=== PATIENT | female | born 1990 | race Caucasian/White ===

== ENCOUNTER 2024-02-16 17:22 | Emergency (ER) | payer BC ==
--- NOTE | 2024-02-16 17:37 | ED Physician Documentation ---
PD HPI LOWER EXT INJURY - Stated complaint Stated Complaint: L KNEE INJ - Chief complaint Chief Complaint: Ext Problem - History obtained from History obtained from: Patient (She was playing soccer just prior to arrival and collided with another player and hyperextended her left knee. Pain is moderate. No other injuries. She is not able to walk or bear weight.) PD PAST MEDICAL HISTORY - Past Medical History Past Medical History: No - Allergies Allergies/Adverse Reactions: Allergies Allergy/AdvReac Type Severity Reaction Status Date / Time No Known Drug Allergies Allergy Verified 02/16/24 17:36 - Social History Does the pt smoke?: No Smoking Status: Never smoker Does the pt drink ETOH?: No ETOH Use: Wine, Beer Does the pt have substance abuse?: No - Immunizations Immunizations are current?: No Immunizations: TDAP current <10years - POLST Patient has POLST: No PD ED PE NORMAL - Vitals Vital signs reviewed: Yes - General General: Alert and oriented X 3, No acute distress - Extremities Extremities: Other (The left knee is swollen anteriorly with an effusion. I am not able to elicit any tenderness of the knee. ACL, PCL, LCL, MCL testing is intact without laxity or significant pain. Borderline positive grind testing.) - Neuro Neuro: Alert and oriented X 3 Results - Vitals Vitals: Vital Signs - 24 hr 02/16/24 17:28 Temperature 37.4 C Heart Rate 100 Respiratory 18 Rate Blood Pressure 124/84 H O2 Saturation 100 Oxygen O2 Source Room air - Rads (name of study) 4v L knee XR- NAd Relevant Findings:: Final report received, EMP independent interpretation of test PD Medical Decision Making - ED course ED course: Clinically with effusion, borderline pos grind test. Cannot WB Knee immobilizer/crutches F/u for reexam despite neg xr, consider outpt mri. Departure - Departure Disposition: 01 Home, Self Care Clinical Impression: Knee injury Qualifiers: Encounter type: initial encounter Laterality: left Qualified Code(s): S89.92XA - Unspecified injury of left lower leg, initial encounter Condition: Good Record reviewed to determine appropriate education?: Yes Instructions: ED Sprain Knee Comments: As discussed, the knee x-ray looks normal to me. If you are able to over the next couple of days it is okay to walk and bear weight as tolerated, but if not improving quickly follow-up with primary care physician or orthopedist in your area for reevaluation and consideration for MRI. Return for new or worsening symptoms. You can take Tylenol and/or ibuprofen as needed for pain. Forms: PCP List Discharge Date/Time: 02/16/24 18:29
[2024-02-16 17:40] VITALS: BP 124/84; O2SAT 100
--- NOTE | 2024-02-16 19:12 | XRAY Report ---
PROCEDURE: Knee 4+V LT INDICATIONS: knee inj TECHNIQUE: 4 views of the knee(s) were acquired. COMPARISON: None. FINDINGS: Bones: No fractures or dislocations. Joint spaces are maintained. Normal patellar alignment on the s unrise view. No suspicious bony lesions. Soft tissues: No knee joint effusion. No suspicious soft tissue calcifications or masses. IMPRESSION: No acute bony abnormality. Reviewed by: Valentino Rodriguez MD on 02/16/2024 6:10 PM JODY Approved by: Valentino Rodriguez MD on 02/16/2024 6:10 PM AKKASH Station ID: [id number]
== END 2024-02-16 18:29 | disposition home or self-care (01) ==
LOC: ED 17:22
DX: S89.92XA Unspecified injury of left lower leg, initial encounter (principal); W21.9XXA Striking against or struck by unspecified sports equipment, initial encounter; Y93.66 Activity, soccer
CPT/HCPCS: 99283